=== PATIENT | male | born 1950 | race Caucasian/White ===

== ENCOUNTER 2020-08-15 11:30 | Inpatient (IN) | payer MEDICARE, BC ==
[~2020-08-15] VITALS: Ht 182.9 cm; Wt 106.0 kg
--- NOTE | 2020-08-15 11:44 | NUR ---
pt denies abillity to produce ua at this time
[2020-08-15] MEDS ORDERED: SODIUM CHLORIDE FLUSH 10ML SYR IVF ONE (12:00)
[2020-08-15 12:06] LABS: BASOPHILS % (AUTO) 1 % (0-1); EOSINOPHILS % (AUTO) 0 % (1-7); LYMPHOCYTES % (AUTO) 9 % (22-44); MEAN CORPUSCULAR HEMOGLOBIN 33.3 pg (27.5-34.5); MEAN CORPUSCULAR HGB CONC 34.8 g/dL (33.2-36.2); MEAN PLATELET VOLUME 7.3 fL (7.4-10.4); MONOCYTES % (AUTO) 7 % (2-9); NEUTROPHILS % (AUTO) 82 % (42-75); PLATELET COUNT 217 x10^3/uL (130-400); RED BLOOD COUNT 4.42 x10^6/uL (4.38-5.82); RED CELL DISTRIBUTION WIDTH 13.1 % (9.4-14.8)
[2020-08-15 12:18] LABS: ALANINE AMINOTRANSFERASE 32 U/L (12-78); ALBUMIN 3.5 g/dL (3.4-5.0); ANION GAP 7 mmol/L (5-15); CALCIUM 9.3 mg/dL (8.5-10.1); CHLORIDE 102 mmol/L (98-107); CREATININE 2.01 mg/dL (0.7-1.3)
[2020-08-15 12:20] LABS: ALKALINE PHOSPHATASE 70 U/L (45-117); BILIRUBIN,TOTAL 1.1 mg/dL (0.2-1.0)
--- NOTE | 2020-08-15 12:44 | NUR ---
pt ambulated to bathroom with steady gait
[2020-08-15 13:12] LABS: MICROSCOPIC AUTO
[2020-08-15] MEDS ORDERED: MORPHINE SULFATE 4 MG/ML, 1ML ONE (13:36)
[2020-08-15] MEDS ORDERED: morphine SULFATE 10 MG/ML, 1ML IVPush ONE (14:00)
--- NOTE | 2020-08-15 14:56 | NUR ---
REPORT FROM BENSON DE LA TORRE
--- NOTE | 2020-08-15 15:18 | NUR ---
DR HERRERA AT BEDSIDE FOR RECHECK.
--- NOTE | 2020-08-15 15:28 | NUR ---
roberto watkinsie [phone] Addendum: 08/15/20 at 1530 by REFUGIO kvng [phone]
[2020-08-15] MEDS ORDERED: HYDROcodone/APAP 5/325 TABLET PO PRN (16:00)
[2020-08-15] MEDS ORDERED: BUTALB/APAP/CAFFEINE 50MG/325MG/40MG PO PRN ×2 (16:00)
[2020-08-15] MEDS ORDERED: ENALAPRILAT 1.25 MG/ML, 2ML IVPush PRN (16:00)
[2020-08-15] MEDS ORDERED: GABAPENTIN 300 MG CAPSULE PO PRN (16:00)
[2020-08-15] MEDS ORDERED: ONDANSETRON ODT 4 MG PO PRN (16:00)
[2020-08-15] MEDS ORDERED: hydrALAzine 20 MG/ML, 1ML IVPush PRN (16:00)
[2020-08-15] MEDS ORDERED: BACLOFEN 10 MG TABLET PO PRN (16:00)
[2020-08-15] MEDS ORDERED: ACETAMINOPHEN 325 MG TABLET PO PRN (16:00)
--- NOTE | 2020-08-15 16:11 | NUR ---
COVID SWAB COLLECTED AND WALKED TO LAB
[2020-08-15] MEDS ORDERED: ONDANSETRON 2MG/ML, 2ML ONE ×3 (16:27→19:41)
[2020-08-15] MEDS ORDERED: morphine SULFATE 10 MG/ML, 1ML ONE (16:27)
[2020-08-15] MEDS ORDERED: ONDANSETRON ODT 4 MG ONE (16:28)
[2020-08-15] MEDS ORDERED: SODIUM CHLORIDE 0.9% 1,000ML IV ONE (16:30)
[2020-08-15] MEDS: ONDANSETRON 2MG/ML, 2ML IVPush PRN (16:38)
[2020-08-15] MEDS: MORPHINE SULFATE 4 MG/ML, 1ML IVPush PRN (16:38)
--- NOTE | 2020-08-15 17:14 | NUR ---
REPORT GIVEN TO MAYRA DE LA TORRE
[2020-08-15 18:30] VITALS: BP 144/69
[2020-08-15] MEDS ORDERED: FENTANYL PF 100 MCG/2ML ONE ×2 (19:08→20:01)
[2020-08-15] MEDS ORDERED: OMNIPAQUE 350 MG/ML, 50 ML BOTTLE ONE (19:25)
[2020-08-15] MEDS ORDERED: DEXAMETHASONE 4 MG/ML, 1ML ONE (19:41)
[2020-08-15] MEDS ORDERED: PROPOFOL 10 MG/ML, 20ML ONE (19:41)
[2020-08-15] MEDS ORDERED: SUCCINYLCHOLINE 20 MG/ML, 10ML ONE (19:41)
[2020-08-15] MEDS ORDERED: CEFAZOLIN 1,000 MG ONE (19:41)
[2020-08-15] MEDS ORDERED: LIDOCAINE-MPF 2% ,5ML ONE (19:59)
[2020-08-15] MEDS ORDERED: MELATONIN 5 MG TABLET PO SCH (21:00)
[2020-08-15] MEDS: D5%-0.45NACL+KCL 20MEQ 1,000 ML IV SCH (21:42)
[2020-08-15 21:45] VITALS: BP 154/87
[2020-08-16 01:44] VITALS: BP 157/92
[2020-08-16] MEDS: MORPHINE SULFATE 4 MG/ML, 1ML IVPush PRN ×2 (02:28→08:29)
[2020-08-16 05:16] LABS: BASOPHILS % (AUTO) 0 % (0-1); EOSINOPHILS % (AUTO) 0 % (1-7); LYMPHOCYTES % (AUTO) 6 % (22-44); MEAN CORPUSCULAR HEMOGLOBIN 33.1 pg (27.5-34.5); MEAN CORPUSCULAR HGB CONC 34.7 g/dL (33.2-36.2); MEAN PLATELET VOLUME 7.5 fL (7.4-10.4); MONOCYTES % (AUTO) 8 % (2-9); NEUTROPHILS % (AUTO) 85 % (42-75); PLATELET COUNT 210 x10^3/uL (130-400); RED BLOOD COUNT 4.21 x10^6/uL (4.38-5.82); RED CELL DISTRIBUTION WIDTH 13.3 % (9.4-14.8)
[2020-08-16 05:29] LABS: CHLORIDE 101 mmol/L (98-107)
[2020-08-16 05:34] LABS: ANION GAP 6 mmol/L (5-15); CALCIUM 8.6 mg/dL (8.5-10.1); CREATININE 1.84 mg/dL (0.7-1.3)
[2020-08-16 07:34] VITALS: BP 126/81
[2020-08-16] MEDS: ONDANSETRON 2MG/ML, 2ML IVPush PRN (08:29)
[2020-08-16] MEDS ORDERED: SENNA/DOCUSATE TABLET PO SCH (09:00)
[2020-08-16] MEDS: D5%-0.45NACL+KCL 20MEQ 1,000 ML IV SCH (09:04)
[2020-08-16] MEDS ORDERED: HYDR-2214 PO (12:09)
[2020-08-16 14:18] VITALS: BP 135/66
== END 2020-08-16 17:30 | disposition home or self-care (01) | DRG 694 ==
LOC: ED 12:21 → EDIP 15:58 → 3N 17:45
PROVIDERS: ADMIT Family Medicine; ATTEND Family Medicine
PROC: 0TF78ZZ Fragmentation in Left Ureter, Via Natural or Artificial Opening Endoscopic (ICD-10-PCS; 2020-08-15)
PROC: 0TCB8ZZ Extirpation of Matter from Bladder, Via Natural or Artificial Opening Endoscopic (ICD-10-PCS; 2020-08-15)
PROC: 0T7D8ZZ Dilation of Urethra, Via Natural or Artificial Opening Endoscopic (ICD-10-PCS; principal; 2020-08-15 21:00)
DX: N13.2 Hydronephrosis with renal and ureteral calculous obstruction (principal); Z20.822 Contact with and (suspected) exposure to COVID-19; E86.0 Dehydration; E87.6 Hypokalemia; H35.30 Unspecified macular degeneration; I10 Essential (primary) hypertension; K21.9 Gastro-esophageal reflux disease without esophagitis; R73.9 Hyperglycemia, unspecified; N17.0 Acute kidney failure with tubular necrosis; N35.912 Unspecified bulbous urethral stricture, male; R31.0 Gross hematuria; Z79.899 Other long term (current) drug therapy; Z87.442 Personal history of urinary calculi
CPT/HCPCS: 36415; 74018; 74176; 76000; 80048; 80053; 81001; 83690; 83735; 85025; 87635; G0378; J0690; J1100; J2405; J2704; J3010; Q9967; C1769; J0330; J2270; J3480; J7030

== ENCOUNTER 2020-08-18 06:12 | Inpatient (IN) | payer MEDICARE, BC ==
[~2020-08-18] VITALS: Ht 182.9 cm; Wt 102.3 kg
[~2020-08-18 06:12] MED LIST: HYDR-2214 PO
--- NOTE | 2020-08-18 06:28 | NUR ---
PT AMBULATED TO ROOM WITH STEADY GAIT. PT OFF UNIT IN IMAGING.
--- NOTE | 2020-08-18 06:42 | NUR ---
PT C/O OF LEFT FLANK PAIN THAT HAS MIGRATED TO WHOLE ABDOMEN. PT DENIES CP, SOB, AND HEAD, AND DENIES PAINFUL URINATION. PT ATTACHED TO MONITORS. VSS. NADN. BED IN LOW POSITION, RAILS ENGAGED. CALL LIGHT ON LAP. AT BEDSIDE PT HAD KIDNEY STONE ON THURSDAY AND HAD LITHOTRIPSY DONE. PT REPORTS WHEN PAIN PILLS ARENT WORKING THE PAIN IS UNBEARABLE. PT PAIN CONTROLLED CURRENTLY. PT TOOK 2 NORCO [id number]
--- NOTE | 2020-08-18 06:55 | NUR ---
report from BRITT Parish
--- NOTE | 2020-08-18 06:57 | NUR ---
GAVE REPORT TO ALBERT DE LA TORRE. TRANSFER OF CARE.
--- NOTE | 2020-08-18 07:05 | NUR ---
LAB AT BS. PT PLACED ON SUPPL O2 @ 2L NC D/T SPO2 80%. PT SPO2 NOW 94%
[2020-08-18 07:14] LABS: MICROSCOPIC AUTO
--- NOTE | 2020-08-18 07:15 | NUR ---
ERP AT BS
[2020-08-18 07:18] LABS: BASOPHILS % (AUTO) 1 % (0-1); EOSINOPHILS % (AUTO) 0 % (1-7); LYMPHOCYTES % (AUTO) 10 % (22-44); MEAN CORPUSCULAR HEMOGLOBIN 33.1 pg (27.5-34.5); MEAN CORPUSCULAR HGB CONC 34.2 g/dL (33.2-36.2); MEAN PLATELET VOLUME 7.6 fL (7.4-10.4); MONOCYTES % (AUTO) 10 % (2-9); NEUTROPHILS % (AUTO) 79 % (42-75); PLATELET COUNT 223 x10^3/uL (130-400); RED BLOOD COUNT 3.99 x10^6/uL (4.38-5.82); RED CELL DISTRIBUTION WIDTH 13.2 % (9.4-14.8)
[2020-08-18 07:30] LABS: ALBUMIN 2.8 g/dL (3.4-5.0); ANION GAP 6 mmol/L (5-15); CALCIUM 8.9 mg/dL (8.5-10.1); CHLORIDE 106 mmol/L (98-107)
--- NOTE | 2020-08-18 07:50 | NUR ---
PER ERP, NO BLOOD CULTURES NEEDED. ANTIBX ADMINISTERED.
[2020-08-18] MEDS ORDERED: SODIUM CHLORIDE FLUSH 10ML SYR IVF ONE (08:00)
[2020-08-18] MEDS ORDERED: CEFTRIAXONE 1,000 MG in DEXTROSE 5% 50 ML IVPB ONE (08:00)
[2020-08-18] MEDS ORDERED: SODIUM CHLORIDE 0.9% 1,000ML IVBOLUS ONE (08:00)
--- NOTE | 2020-08-18 08:14 | NUR ---
PT RESTING ON KAMRON CAMERON/VSS. FAMILY AT BS. IVF INFUSING. CALL LIGHT WITHIN REACH. BED IN LOWEST POSITION.
[2020-08-18] MEDS ORDERED: HYDROcodone/APAP 5/325 TABLET ONE (09:03)
[2020-08-18] MEDS ORDERED: GUAIFENESIN/DM 200-20MG, 10ML UDC PO PRN (09:30)
[2020-08-18] MEDS ORDERED: MELATONIN 5 MG TABLET PO PRN (09:30)
[2020-08-18] MEDS ORDERED: HYDROcodone/APAP 5/325 TABLET PO ONE (09:30)
[2020-08-18] MEDS ORDERED: ENALAPRILAT 1.25 MG/ML, 2ML IVPush PRN (09:30)
[2020-08-18] MEDS ORDERED: ACETAMINOPHEN 325 MG TABLET PO PRN (09:30)
[2020-08-18] MEDS ORDERED: BACLOFEN 10 MG TABLET PO PRN (09:30)
[2020-08-18] MEDS ORDERED: hydrALAzine 20 MG/ML, 1ML IVPush PRN (09:30)
[2020-08-18] MEDS ORDERED: POTASSIUM CHLORIDE 20 MEQ in LACTATED RINGERS 1,000 ML IV SCH (09:30)
[2020-08-18] MEDS ORDERED: BUTALB/APAP/CAFFEINE 50MG/325MG/40MG PO PRN (09:30)
[2020-08-18] MEDS ORDERED: ONDANSETRON ODT 4 MG PO PRN (09:30)
[2020-08-18] MEDS ORDERED: ONDANSETRON 2MG/ML, 2ML IVPush PRN (09:30)
--- NOTE | 2020-08-18 09:34 | NUR ---
PT SITTING ON GURNEY, NADN/VSS. CALL LIGHT WITHIN REACH, BED IN LOWEST POSITION, BED RAILS UP X2. NO NEEDS AT THIS TIME. PT DENIES PAIN
--- NOTE | 2020-08-18 09:51 | NUR ---
Pt to be admitted to MED[facility], room 368. Report called to LINA.
[2020-08-18] MEDS: OXYcodone IR 5MG TABLET PO PRN ×2 (11:15→16:05)
[2020-08-18 12:00] VITALS: BP 142/91
[2020-08-18] MEDS ORDERED: SUCR1ORA14 PO (15:03)
[2020-08-18] MEDS ORDERED: LOSA1TAB19 PO (15:03)
[2020-08-18] MEDS ORDERED: FAMO-79 PO (15:03)
[2020-08-18] MEDS ORDERED: METO-282 PO (15:03)
[2020-08-18] MEDS ORDERED: ESOM20SU PO (15:03)
[2020-08-18] MEDS ORDERED: HEPARIN 5,000 UNITS/ML, 1ML SQ SCH (15:30)
[2020-08-18] MEDS ORDERED: CEFTRIAXONE 1,000 MG in DEXTROSE 5% 50 ML IVPB SCH (17:00)
[2020-08-18 17:37] VITALS: BP 138/83
[2020-08-18 19:05] VITALS: BP 121/77
[2020-08-18] MEDS ORDERED: LACTULOSE 10 GM/15 ML UDC PO SCH (21:00)
== END 2020-08-18 23:50 | disposition left against medical advice (07) | DRG 690 ==
LOC: ED 07:37 → EDIP 09:26 → 3N 10:24
PROVIDERS: ADMIT Family Medicine; ATTEND Family Medicine
DX: N13.6 Pyonephrosis (principal); I10 Essential (primary) hypertension; N17.9 Acute kidney failure, unspecified; H53.2 Diplopia; K21.9 Gastro-esophageal reflux disease without esophagitis; E86.0 Dehydration; H35.30 Unspecified macular degeneration; E87.6 Hypokalemia; R73.9 Hyperglycemia, unspecified; Z87.442 Personal history of urinary calculi
CPT/HCPCS: 36415; 74176; 80048; 81001; 82040; 85025; 87086; 96365; G0378; J0696; J1644; J3480; J7030; J7120